=== PATIENT | female | born 1975 | race African-American/Black ===

== ENCOUNTER 2018-02-05 13:35 | Outpatient (CLI) | payer MEDICAID ==
--- NOTE | 2018-02-05 14:57 | ULT ---
LEFT BREAST ULTRASOUND: Date: 02/05/18 HISTORY: Recent trauma to the breast, left breast palpable abnormality. FINDINGS: Sonographic evaluation of the subareolar region of the left breast demonstrates a complex cystic mass measuring about 2.0 cm in largest dimension. This likely represents a hematoma. IMPRESSION: BI-RADS Category 3 - Probably benign findings. Three month follow-up left breast ultrasound is recomm ended. The facility will notify patient of need for additional imaging services. POS: OFF
== END 2018-02-05 13:36 | disposition home or self-care (01) ==
LOC: BICMAMMO 13:35
PROVIDERS: ATTEND Nurse Practitioner Family
DX: N63.20 Unspecified lump in the left breast, unspecified quadrant (principal)
CPT/HCPCS: 77066; G0279